=== PATIENT | male | born 1985 | race Caucasian/White ===

== ENCOUNTER 2017-12-27 17:12 | Emergency (ER) | payer OTHER, MEDICAID ==
[~2017-12-27] VITALS: Ht 175.3 cm; Wt 61.2 kg
[2017-12-27 18:24] LABS: URINE BILIRUBIN NEGATIVE (Negative); URINE BLOOD TRACE (Negative); URINE CLARITY SL CLOUDY; URINE COLOR YELLOW; URINE GLUCOSE-RANDOM NEGATIVE (Negative); URINE KETONES NEGATIVE (Negative); URINE LEUKOCYTES-REFLEX 3+ (Negative); URINE NITRITE-REFLEX NEGATIVE (Negative); URINE PROTEIN NEGATIVE (Negative); URINE SPECIFIC GRAVITY 1.015 (1.005-1.030); URINE UROBILINOGEN 0.2 E.U./dl (0.2-1.0)
[2017-12-27] MEDS ORDERED: DOXYCYCLINE MO100 M1 PO (19:04)
[2017-12-27 19:13] LABS: CRYSTALS None Seen /LPF (None Seen); MUCUS 0-3 Light strn/LPF (None Seen); SQUAMOUS NONE SEEN /LPF (0-3); URINE WBC-REFLEX >25 Many /HPF (0-5); WBC CLUMPS Few (None Seen)
[2017-12-27 19:14] LABS: BACTERIA-REFLEX 1-9 Few /HPF (None Seen); CASTS None Seen /LPF (None Seen); URINE RBC 0-2 Rare /HPF (0-2)
[2017-12-27 19:26] VITALS: BP 112/69
== END 2017-12-27 19:28 | disposition home or self-care (01) ==
LOC: M.ERS 17:12
PROVIDERS: Physician Assistant
DX: R36.9 Urethral discharge, unspecified (principal); A59.9 Trichomoniasis, unspecified; F17.200 Nicotine dependence, unspecified, uncomplicated